=== PATIENT | female | born 1945 | race Hispanic/Latino ===

== ENCOUNTER 2021-07-13 00:11 | Emergency (ER) | payer MEDICARE ==
[2021-07-13 00:38] VITALS: BP 117/51
[2021-07-13] MEDS ORDERED: MULT-1367 PO (00:46)
[2021-07-13] MEDS ORDERED: OMEP-420 PO (00:46)
[2021-07-13] MEDS ORDERED: ATOR10 PO (00:46)
[2021-07-13] MEDS ORDERED: DOCU100C33 PO (00:46)
[2021-07-13] MEDS ORDERED: AEC81 PO (00:46)
[2021-07-13] MEDS ORDERED: DULO30CA52 PO (00:46)
[2021-07-13] MEDS ORDERED: CARB-38 PO (00:46)
[2021-07-13] MEDS ORDERED: AMLO-258 PO (00:46)
[2021-07-13] MEDS ORDERED: ASPIRIN 81MG CHEW TAB PO ONE (01:00)
[2021-07-13] MEDS ORDERED: ONDANSETRON 4MG INJ IVP ONE (01:00)
[2021-07-13] MEDS ORDERED: 0.9%NACL 1000ML 1,000 ML IV ONE (01:00)
[2021-07-13] MEDS ORDERED: PANTOPRAZOLE 40 MG/VIAL IVP SCH (01:00)
[2021-07-13 01:07] LABS: BASOPHILS % (AUTO) 0.2 % (0.0-5.0); HEMATOCRIT 40.1 % (36-48); LYMPHOCYTES % (AUTO) 17.9 % (21.0-51.0); MEAN CORPUSCULAR HEMOGLOBIN 28.5 pg (27.0-33.0); MEAN CORPUSCULAR HGB CONC 33.7 g/dL (32.0-36.0); MEAN CORPUSCULAR VOLUME 84.6 fL (79-99); NEUTROPHILS % (AUTO) 70.7 % (40.0-77.0); PLATELET COUNT (AUTO) 185 K/uL (130-400); RED BLOOD CELL COUNT(AUTO) 4.74 MIL/uL (4.00-5.50); RED CELL DISTRIBUTION WIDTH 13.1 % (11.0-15.5); WHITE BLOOD COUNT (AUTO) 5.5 K/uL (4.8-10.8)
[2021-07-13 01:10] LABS: CREATININE 0.7 mg/dL (0.5-1.5); POTASSIUM 3.8 mmol/L (3.5-5.1)
[2021-07-13 01:15] LABS: BILIRUBIN,TOTAL 0.5 mg/dL (0.2-1.0); CRP QUANTITATIVE 81.7 mg/L (0.00-9.0); MAGNESIUM 2.1 mg/dL (1.80-2.40); TOTAL PROTEIN, SERUM 6.7 g/dL (6.0-8.3)
[2021-07-13 01:34] LABS: B-TYPE NATRIURETIC PEPTIDE 8 pg/mL (0-100)
[2021-07-13 01:57] VITALS: BP 117/68
[2021-07-13] MEDS ORDERED: MONT10TA21 PO (02:28)
[2021-07-13] MEDS ORDERED: ONDA4TAB4 PO (02:28)
[2021-07-13] MEDS ORDERED: IPRA4AER IH (02:28)
[2021-07-13] MEDS ORDERED: ALBUTEROL INHALER 90MCG/INH IH PRN (02:30)
[2021-07-13] MEDS ORDERED: DEXAMETHASONE SOD PHOSPHATE 4 MG/ML 1ML VIAL IVP SCH (02:30)
[2021-07-13] MEDS ORDERED: DEXAMETHASONE SOD PHOSPHATE 4 MG/ML 1ML VIAL ONE (02:46)
[2021-07-13] MEDS ORDERED: ALBUTEROL INHALER 90MCG/INH IH ONE (02:46)
[2021-07-13] MEDS ORDERED: ONDANSETRON 4MG INJ ONE (02:46)
[2021-07-13] MEDS ORDERED: ASPIRIN 325MG TAB ONE (02:46)
[2021-07-13 03:05] VITALS: BP 125/59
== END 2021-07-13 10:22 | disposition home or self-care (01) ==
LOC: EDH 00:11
DX: U07.1 COVID-19 (principal); J12.82 Pneumonia due to coronavirus disease 2019; H91.90 Unspecified hearing loss, unspecified ear; E86.0 Dehydration; I95.9 Hypotension, unspecified; E87.1 Hypo-osmolality and hyponatremia; R06.00 Dyspnea, unspecified; Z88.5 Allergy status to narcotic agent; Z60.2 Problems related to living alone
CPT/HCPCS: 36415; 71045; 80053; 82550; 83735; 83880; 84484; 85025; 85378; 86140; 87635; 93005; 96361; 96374; 96375; 99285; C9113; C9803; J1100; J2405